=== PATIENT | male | born 1940 | race Caucasian/White ===

== ENCOUNTER 2023-05-25 10:18 | Outpatient (CLI) | payer MEDICARE, BC | END 2023-05-25 10:19 | disposition home or self-care (01) | LOC: CSHRAD 10:18 | PROVIDERS: ATTEND Neurological Surgery | DX: M43.16 Spondylolisthesis, lumbar region (principal); Z98.890 Other specified postprocedural states | CPT/HCPCS: 72100 ==

== ENCOUNTER 2023-07-07 11:15 | Outpatient (CLI) | payer MEDICARE, BC | END 2023-07-07 11:16 | disposition home or self-care (01) | LOC: CSHRAD 11:15 | PROVIDERS: ATTEND Neurological Surgery | DX: M48.062 Spinal stenosis, lumbar region with neurogenic claudication (principal); M47.816 Spondylosis without myelopathy or radiculopathy, lumbar region; Z98.890 Other specified postprocedural states | CPT/HCPCS: 72100 ==

== ENCOUNTER 2023-10-06 09:45 | Outpatient (CLI) | payer BC, MEDICARE | END 2023-10-06 09:46 | disposition home or self-care (01) | LOC: CSHCT 09:45 | PROVIDERS: ATTEND Physician Assistant Medical | DX: K86.1 Other chronic pancreatitis (principal); R13.10 Dysphagia, unspecified; K21.9 Gastro-esophageal reflux disease without esophagitis; R63.4 Abnormal weight loss; Z90.49 Acquired absence of other specified parts of digestive tract; N20.0 Calculus of kidney; N28.1 Cyst of kidney, acquired | CPT/HCPCS: 74177; 82565 ==

== ENCOUNTER 2023-10-26 13:26 | Outpatient (CLI) | payer MEDICARE | END 2023-10-26 13:27 | disposition home or self-care (01) | LOC: CSHRAD 13:26 | PROVIDERS: ATTEND Neurological Surgery | DX: M54.50 Low back pain, unspecified (principal); M47.816 Spondylosis without myelopathy or radiculopathy, lumbar region; Z98.890 Other specified postprocedural states; N20.0 Calculus of kidney; K86.89 Other specified diseases of pancreas | CPT/HCPCS: 72100 ==

== ENCOUNTER 2025-05-27 10:57 | Outpatient (CLI) | payer MEDICARE ==
[2025-05-27 11:58] LABS: Hematocrit 29.1 % (38.8-50.0); Hemoglobin 8.9 g/dL (13.5-17.5); Mean Corpuscular Hemoglobin 20.5 pg (27.0-33.0); Mean Corpuscular Volume 66.9 fL (81.2-95.1); Platelet Count 165 10x3/uL (150-450); Red Blood Cell (RBC) Count 4.35 10x6/uL (4.32-5.72); White Blood Cell (WBC) Count 7.35 10x3/uL (3.5-10.5)
[2025-05-27 12:15] LABS: Anion Gap 16 mmol/L (10-20); BUN (Urea Nitrogen) 63 mg/dL (8.4-25.7); Calc. Creatinine Clearance 0 mL/min (70-130); Calcium 8.4 mg/dL (7.8-10.44); Carbon Dioxide 27 mmol/L (23-31); Chloride 101 mmol/L (98-107); Glucose 164 mg/dL (83-110); Potassium 3.5 mmol/L (3.5-5.1); Sodium 140 mmol/L (136-145)
== END 2025-05-27 10:58 | disposition home or self-care (01) ==
LOC: CSHLAB 10:57
PROVIDERS: ATTEND Surgery
DX: Z01.812 Encounter for preprocedural laboratory examination (principal); K40.90 Unilateral inguinal hernia, without obstruction or gangrene, not specified as recurrent
CPT/HCPCS: 80048; 85027

== ENCOUNTER 2025-06-05 06:20 | Day surgery (SDC) | payer MEDICARE ==
[2025-05-27 11:32] VITALS: BMI 22.3
[2025-06-05] MEDS ORDERED: CEFAZOLIN 2 GM VIAL ONE (06:53)
[2025-06-05] MEDS ORDERED: Bupivacaine HCl 0.5%/Epinephrine 1:200,000/PF 30 ml Vial ONE (06:53)
[2025-06-05] MEDS ORDERED: PROPOFOL 20 ML ONE (07:06)
[2025-06-05] MEDS ORDERED: Rocuronium Bromide 10 MG/ML (10ML VIAL) ONE (07:06)
[2025-06-05] MEDS ORDERED: Ondansetron PF 4 MG/2 ML Vial ONE (08:36)
[2025-06-05] MEDS ORDERED: SUGAMMADEX SODIUM 200 MG/2 ML VIAL ONE (08:48)
[2025-06-05] MEDS ORDERED: oxyCODONE 5 MG TAB ONE (09:44)
== END 2025-06-05 10:10 | disposition home or self-care (01) ==
LOC: CSHSDC 06:20
PROVIDERS: ATTEND Surgery
PROC: 0YUA4JZ Supplement Bilateral Inguinal Region with Synthetic Substitute, Percutaneous Endoscopic Approach (ICD-10-PCS; principal; 2025-06-05)
DX: K40.20 Bilateral inguinal hernia, without obstruction or gangrene, not specified as recurrent (principal); N18.6 End stage renal disease; Z99.2 Dependence on renal dialysis; Z96.651 Presence of right artificial knee joint; Z98.41 Cataract extraction status, right eye; Z98.42 Cataract extraction status, left eye; Z90.49 Acquired absence of other specified parts of digestive tract; Z88.6 Allergy status to analgesic agent
CPT/HCPCS: 49650; C1781 ×2; J2405; J2704; J3010; S2900